=== PATIENT | male | born 1935 | race Caucasian/White ===

== ENCOUNTER 2021-11-10 17:59 | Emergency (ER) | payer MEDICARE, BC ==
[~2021-11-10] VITALS: Ht 180.3 cm; Wt 90.0 kg
[~2021-11-10 17:59] MED LIST: CEPHALEXIN500 M1 PO; COLACE 100100 MG/CAP PO; FINASTERIDE; HCTZ12.5TAB PO; HYTRIN10 M1 PO; NORCO 325 MG-51 TAB PO; PROSTATE MED; PYRIDIUM200 M1 PO; TERAZOSIN HCL PO; ZOFRAN ODT4 MG PO
[2021-11-10 19:56] LABS: BASO % 0.6 % (0.0-2.0); EOS # 0.1 K/mm3 (0.0-0.7); EOS % 3.2 % (0.0-4.0); GRAN # 2.3 K/mm3 (1.4-6.5); GRAN % 67.2 % (42.2-75.2); LYMPH # 0.6 K/mm3 (1.2-3.4); LYMPH % 17.4 % (20.0-51.0); MEAN CELL VOLUME 93 fl (80.0-100.0); MEAN CORPUSCULAR HEMOGLOBIN 31 pg (27-31); MEAN CORPUSCULAR HGB CONC 34 g/dl (33.0-37.0); MONO # 0.4 K/mm3 (0.1-0.6); MONO % 11.3 % (1.7-9.3); PLATELET COUNT 90 K/mm3 (130-400); RED BLOOD COUNT 3.84 M/mm3 (4.20-5.60); REDCELL DISTRIBUTION WIDTH-CV 12.8 % (11.5-14.5)
[2021-11-10 20:03] LABS: HEMATOCRIT 35.7 % (42.0-52.0)
[2021-11-10 20:16] LABS: ALBUMIN 3.5 gm/dL (3.4-4.8); BILIRUBIN,TOTAL 0.7 mg/dL (0.2-1.2); CALCIUM 8.1 mg/dL (8.4-10.2); CREATININE, serum 1.63 mg/dL (0.72-1.25); POTASSIUM 4.3 mmol/L (3.5-4.5); TOTAL PROTEIN 7.1 gm/dL (6.2-8.1)
[2021-11-10 20:35] VITALS: TEMP 98.2
[2021-11-10 21:32] VITALS: BP 168/93; PULSE 76
== END 2021-11-10 21:45 | disposition home or self-care (01) ==
LOC: COL.ER 17:59
PROVIDERS: Nurse Practitioner
DX: U07.1 COVID-19 (principal); F03.90 Unspecified dementia, unspecified severity, without behavioral disturbance, psychotic disturbance, mood disturbance, and anxiety; Z87.891 Personal history of nicotine dependence
CPT/HCPCS: J7030; M0222; Q0222